=== PATIENT | male | born 1975 | race American Indian/Alaskan Native ===

== ENCOUNTER 2019-01-07 10:49 | Emergency (ER) | payer OTHER ==
[2019-01-07 11:05] VITALS: BP 134/53
[2019-01-07] MEDS ORDERED: MARCAINE 0.25% INFILTRATI ONE (11:21)
[2019-01-07] MEDS ORDERED: MARCAINE 0.5% INFILTRATI ONE ×2 (11:31→11:33)
--- NOTE | 2019-01-07 12:15 | Emergency Department Report ---
Blank Doc - Documentation Documentation: Procedure note Laceration 1. 3 cm to the mastoid region on the right side linear 1 prepped and draped in sterile fashion anesthesia cheating with bupivacaine. Jansen were placed in simple interrupted fashion 3 for wound closure with no complications. Procedure tolerated well. Laceration #2 to the bridge of the nose 1 cm in length. Wound prepped and draped in sterile fashion, cleaned copiously with chlorhexidine chlorhexidine and closed with skin tissue adhesive with no complications. Laceration #3 to the pinna of the ear area of irregular 1.5 cm in length. Wound prepped and draped in sterile fashion anesthesia achieved with bupivacaine and closed with 40 proline 4. No complications. Procedure tolerated well. Neck and estimated blood loss was less than 5 mL Laceration #4 to the occipitoparietal region of the scalp, 1 cm patient refused closure of this wound was. He stated it is not that bad. He did not wanted to be bothered. All lacerations was were irrigated with saline and cleaned with chlorhexidine despite closure or lack thereof
--- NOTE | 2019-01-07 12:23 | Emergency Department Report ---
ED General Adult HPI - General Chief complaint: Wound/Laceration Stated complaint: MEDICAL CLEARANCE Time Seen by Provider: 01/07/19 11:21 Source: patient, police Mode of arrival: Ambulatory Limitations: No Limitations - History of Present Illness Initial comments: Patient is a 43-year-old male who is being brought in by police with several facial lacerations. Patient's and the police are not very forthcoming of what happened to the patient. Patient states that he did not lose consciousness and just wants to have discussed fix that he can do with his legal issues. Patient is states he is completely alert and alert and oriented at this time. He does have some pain at the nose and wheezes noted may be broken. Patient has no other complaints at this time. Severity scale (0 -10): 6 - Related Data Previous Rx's Medication Instructions Recorded Last Taken Type Clindamycin [Clindamycin CAP] 300 mg PO Q8H #21 cap 01/07/19 Unknown Rx Ibuprofen [Motrin 800 MG tab] 800 mg PO Q8HR PRN #10 tablet 01/07/19 Unknown Rx Allergies Allergy/AdvReac Type Severity Reaction Status Date / Time No Known Allergies Allergy Verified 01/07/19 10:51 ED Review of Systems ROS: Stated complaint: MEDICAL CLEARANCE Other details as noted in HPI Comment: All other systems reviewed and negative ED Past Medical Hx - Past Medical History Previous Medical History?: No - Surgical History Past Surgical History?: No - Social History Smoking Status: Current Every Day Smoker Substance Use Type: Alcohol - Medications Home Medications: Home Medications Medication Instructions Recorded Confirmed Last Taken Type Clindamycin [Clindamycin CAP] 300 mg PO Q8H #21 cap 01/07/19 Unknown Rx Ibuprofen [Motrin 800 MG tab] 800 mg PO Q8HR PRN #10 tablet 01/07/19 Unknown Rx ED Physical Exam - General Limitations: No Limitations General appearance: alert, in no apparent distress - Head Head exam: Present: normocephalic - Expanded Head Exam Expanded 1 - Small 1 cm laceration of the bridge of the nose 2 - Patient's nose is deviated to the left and is likely fractured 3 - 1 cm laceration to the posterior scalp 4 - Small 1 cm laceration 5 - 2 cm laceration at the mastoid area. - Eye Eye exam: Present: normal appearance, PERRL, EOMI - ENT ENT exam: Present: mucous membranes moist - Neck Neck exam: Present: normal inspection - Respiratory Respiratory exam: Present: normal lung sounds bilaterally. Absent: respiratory distress, wheezes, rales, rhonchi - Cardiovascular Cardiovascular Exam: Present: regular rate, normal rhythm. Absent: systolic murmur, diastolic murmur, rubs, gallop - GI/Abdominal GI/Abdominal exam: Present: soft, normal bowel sounds - Rectal Rectal exam: Present: deferred - Extremities Exam Extremities exam: Present: normal inspection - Back Exam Back exam: Present: normal inspection - Neurological Exam Neurological exam: Present: alert, oriented X3 - Psychiatric Psychiatric exam: Present: normal affect, normal mood - Skin Skin exam: Present: warm, dry, intact, normal color. Absent: rash ED Course Vital Signs 01/07/19 10:59 Temperature 98.2 F Pulse Rate 82 Respiratory 18 Rate Blood Pressure 134/53 [Right] O2 Sat by Pulse 98 Oximetry ED Medical Decision Making - Medical Decision Making Patient is a 43-year-old -[place] male who's suffered some facial injuries. Please see note by Mr. Douglas regarding the laceration repairs. Patient also has a obvious nasal bone fracture. There is no current epistaxis. Patient has a small laceration over the bridge of the nose. It is assumed that this fracture is open. Patient was started on Motrin 800 as well as clindamycin and the patient be discharged in police custody. Critical care attestation.: If time is entered above; I have spent that time in minutes in the direct care of this critically ill patient, excluding procedure time. ED Disposition Clinical Impression: Facial laceration Qualifiers: Encounter type: initial encounter Qualified Code(s): S01.81XA - Laceration without foreign body of other part of head, initial encounter Scalp laceration Qualifiers: Encounter type: initial encounter Qualified Code(s): S01.01XA - Laceration without foreign body of scalp, initial encounter Nasal fracture Qualifiers: Encounter type: initial encounter Fracture type: open Qualified Code(s): S02.2XXB - Fracture of nasal bones, initial encounter for open fracture Ear lobe laceration Qualifiers: Encounter type: initial encounter Laterality: right Qualified Code(s): S01.311A - Laceration without foreign body of right ear, initial encounter Disposition: TO HOME OR SELFCARE Is pt being admited?: No Does the pt Need Aspirin: No Condition: Stable Instructions: Laceration (ED), Nasal Fracture (ED) Additional Instructions: Sutures and sierra need to be removed in one week Referrals: PRICILA ALTAMIRANO MD [Primary Care Provider] - 3-5 Days RADHA KURTZ MD [Referring] - 3-5 Days Time of Disposition: 12:26
== END 2019-01-07 12:32 | disposition home or self-care (01) ==
LOC: ED 10:49 → EEVIPCON 10:49 → ED 12:32
DX: S01.81XA Laceration without foreign body of other part of head, initial encounter (principal); S01.01XA Laceration without foreign body of scalp, initial encounter; S02.2XXB Fracture of nasal bones, initial encounter for open fracture; S01.311A Laceration without foreign body of right ear, initial encounter; F17.200 Nicotine dependence, unspecified, uncomplicated; Y04.8XXA Assault by other bodily force, initial encounter; Y93.89 Activity, other specified; Y92.89 Other specified places as the place of occurrence of the external cause; Y99.8 Other external cause status